=== PATIENT | female | born 1960 | race Caucasian/White ===

== ENCOUNTER → 2018-07-16 15:10 | Outpatient (POV) | payer OTHER, SELFPAY | PROVIDERS: PCP Nurse Practitioner Family | DX: Z00.00 Encounter for general adult medical examination without abnormal findings (principal) ==

== ENCOUNTER → 2019-07-22 14:43 | Outpatient (POV) | payer OTHER, SELFPAY | DX: Z00.00 Encounter for general adult medical examination without abnormal findings (principal) ==

== ENCOUNTER → 2021-04-27 09:55 | Outpatient (CLI) | payer MEDICAID, SELFPAY | PROVIDERS: Visit Provider Internal Medicine Gastroenterology | DX: Z20.822 Contact with and (suspected) exposure to COVID-19 (principal) | CPT/HCPCS: U0003 ==

== ENCOUNTER → 2021-06-29 12:39 | Outpatient (CLI) | payer MEDICAID, SELFPAY | PROVIDERS: Visit Provider Physician Assistant | DX: Z20.822 Contact with and (suspected) exposure to COVID-19 (principal) | CPT/HCPCS: U0003 ==

== ENCOUNTER 2022-11-13 19:39 | Emergency (ER) | payer MEDICAID, SELFPAY ==
[2022-11-13] VITALS (10 sets, daily range): BP systolic 119–147; BP diastolic 72–95; PULSE 90–116; RESP 14–22; TEMP 36.8; O2SAT 90–95; BMI 21.5
--- NOTE | 2022-11-13 19:45 | ECG_ITS ---
APPROVED REPORT Exam: Resting ECG HR:112 bpm ECG Measurements Heart Rate 112 AXES DE 164 P 84 QRSd 76 QRS 100 QT 304 T 83 QTc 370 Conclusion SINUS TACHYCARDIA WITH OCCASIONAL VENTRICULAR PREMATURE COMPLEXES RIGHT ATRIAL ENLARGEMENT [0.3mV P-WAVE] INDETERMINATE AXIS MODERATE ST DEPRESSION [0.05+ mV ST DEPRESSION] ABNORMAL ECG UNCONFIRMED REPORT Electronically signed by : Cornelius Hackett MD 11/13/2022 21:50:08
--- NOTE | 2022-11-13 19:58 | XR_ITS ---
PROCEDURE INFORMATION: Exam: XR Chest Exam date and time: 11/13/2022 8:10 PM Age: 62 years old Clinical indication: Shortness of breath; Additional info: SOA TECHNIQUE: Imaging protocol: Radiologic exam of the chest. Views: 2 views. COMPARISON: CR CXR CHEST(2 VIEWS-NOT PORTABLE) 03/07/2017 12:10 PM FINDINGS: Lungs: The lungs are hyperexpanded, compatible with emphysema. No active pulmonary infiltrate seen. Pleural spaces: Unremarkable. No pleural effusion. No pneumothorax. Heart/Mediastinum: Unremarkable. No cardiomegaly. Bones/joints: Mild degenerative changes are noted throughout the thoracic spine. IMPRESSION: No acute disease
[2022-11-13 20:05] LABS: Coronavirus 19, PCR Not Detected (NotDetected); Influenza A, PCR Not Detected (NotDetected); Influenza B, PCR Not Detected (NotDetected)
[2022-11-13 20:09] LABS: Chloride 101 mmol/L (98-107); Potassium 3.6 mmoL/L (3.5-5.1); Sodium 136 mmol/L (136-145)
--- NOTE | 2022-11-13 20:11 | HMH.EDSOB ---
Discharge Plan Disposition Patient Disposition: Home, Self-Care Prescriptions Prescriptions: New levofloxacin 500 mg tablet 500 mg PO DAILY Qty: 7 0RF No Action escitalopram oxalate 20 mg tablet PO 30 Days Qty: 30 Label Comments: estradiol 0.5 mg tablet 0.5 mg PO QDAY diazepam 10 mg tablet PO 30 Days Qty: 75 Label Comments: albuterol sulfate 90 mcg/actuation HFA aerosol inhaler INHALATION 25 Days Qty: 18 Label Comments: mirtazapine 15 mg tablet PO 30 Days Qty: 30 Label Comments: fluticasone propionate 110 mcg/actuation HFA aerosol inhaler INHALATION 30 Days Qty: 12 Label Comments: tiotropium bromide 2.5 mcg/actuation mist INHALATION 30 Days Qty: 4 Label Comments: amoxicillin-pot clavulanate [Augmentin] 875-125 mg tablet 1 tab PO BID Qty: 14 0RF guaifenesin [Mucinex] 600 mg tablet extended release 12hr 600 mg PO BID PRN (Reason: congestion) Qty: 20 0RF prednisone 10 mg tablets,dose pack See Rx Instructions PO PER PKG DIR Qty: 21 0RF Rx Instructions: PO PER PKG DIR prednisone 50 MG tablet 50 mg PO DAILY Qty: 5 0RF famotidine 20 MG tablet 20 mg PO BID Qty: 10 0RF diphenhydramine HCl 25 MG capsule 25 mg PO Q6H Qty: 20 0RF Rx Instructions: Take 1 capsule by mouth every 6 hours for 2 days, then continue if rash persists or recurs. Referrals Follow up/Referrals: Provider,Referral, MD [Primary Care Provider] - See instructions Clinical Impressions Clinical Impression: Acute exacerbation of chronic obstructive pulmonary disease (COPD), Leukocytosis (leucocytosis) Instructions Patient Instructions: DI for Chronic Obstructive Pulmonary Disease, DI for Leukocytosis Discharge ED Provider: Raleigh Basurto Resp/SOB HPI General Chief Complaint: Shortness of Breath/Dyspnea Stated Complaint: SOB Time Seen by Provider: 11/13/22 20:12 Mode of Arrival: Ambulatory Source of Information: Patient and Medical Record Limitations: No Limitations Description of Symptoms (Recalled from ER Triage Doc. by RN): Patient states that she has had shortness of air since 1400 today. States she has a hx of copd and believes that some recent stress has exacerbated it. Pt has treated her copd with her albuterol inhaler and a duoneb. Patient states that she has recently been diagnosed with a sinus infection and finished a round of steroids 5 days ago. States that she continues to have a productive cough. Denies any body aches or fever. History of Present Illness pt with hx of copd and has increased sob - recent steroids for sinus infection and has prod cough - pt with sob with walking and has had some loose stool at home and nonspecific adam MD Complaint: shortness of breath and cough Onset (ago): day(s) Context: recent illness Severity: moderate Known history of: COPD Associated symptoms: other (fatigue) Related Data Home oxygen amount: none Home Medications Medication Instructions Recorded Confirmed albuterol sulfate 90 mcg/actuation inhalation 25 days ##18 12/04/17 11/06/19 aerosol inhaler diazepam 10 mg tablet PO 30 days ##75 12/04/17 11/06/19 escitalopram oxalate 20 mg tablet PO 30 days ##30 12/04/17 11/06/19 estradiol 0.5 mg tablet 0.5 mg PO QDAY 12/04/17 11/06/19 fluticasone propionate 110 inhalation 30 days ##12 12/04/17 11/06/19 mcg/actuation HFA aerosol inhaler mirtazapine 15 mg tablet PO 30 days ##30 12/04/17 11/06/19 tiotropium bromide 2.5 inhalation 30 days ##4 12/04/17 11/06/19 mcg/actuation mist for inhalation Previous Rx's Medication Instructions Recorded amoxicillin 875 mg-potassium 1 tab PO BID #14 tabs 11/06/19 clavulanate 125 mg tablet (Augmentin) diphenhydramine HCl 25 mg capsule 25 mg PO Q6H #20 caps 11/06/19 famotidine 20 mg tablet 20 mg PO BID #10 tabs 11/06/19 guaifenesin 600 mg tablet, 600 mg PO BID PRN congestion #20 11/06/19 extende
[2022-11-13 20:12] LABS: Alanine Aminotransferase 36 U/L (12-78); Albumin Level 4.6 g/dl (3.5-5.0); Albumin/Globulin Ratio 1.3 (1.1-1.8); Alkaline Phosphatase 166 U/L (38-126); Anion Gap 13.6 mEq/L (5-15); Aspartate Amino Transferase 42 U/L (14-36); Bilirubin,Total 0.6 mg/dl (0.2-1.3); Blood Urea Nitrogen 8 mg/dl (7-17); Carbon Dioxide 25 mmol/L (22.0-30.0); Creatinine Clearance Estimated 48 mL/min (50-200); Estimated Glomerular Filt Rate 56 ml/min (>60); GFR (African American) 68 ML/MIN (>60); Globulin 3.5 g/dL (1.3-3.2); Total Protein,Serum 8.1 g/dl (6.3-8.2)
[2022-11-13 20:13] LABS: Calcium 9.5 mg/dl (8.4-10.2); Glucose 141 mg/dl (74-100)
--- NOTE | 2022-11-13 20:18 | PC.NURSE ---
Pt out of room for Chest X-Ray @ this time.
[2022-11-13 20:19] LABS: Basophils # 0.2 K/mm3 (0-0.2); Basophils % 0.8 % (0.1-2.0); Eosinophils # 0.2 K/mm3 (0.0-0.4); Eosinophils % 0.7 % (0.1-12.0); Hematocrit 48.2 % (37.0-47.0); Hemoglobin 16.2 g/dL (12.2-16.2); Lymphocytes # 1.2 K/mm3 (0.7-4.5); Lymphocytes % 5.1 % (10-50); Mean Corpuscular HGB Conc 33.6 g/dL (31.8-35.4); Mean Corpuscular Hemoglobin 33.3 pg (27.0-31.2); Mean Corpuscular Volume 98.9 fl (81-99); Mean Platelet Volume 7.8 fl (7.4-10.4); Monocytes # 0.8 K/mm3 (0.1-1.0); Monocytes % 3.3 % (1.7-9.3); Neutrophils # 21.5 K/mm3 (1.8-7.8); Platelet Count 477 K/mm3 (142-424); Red Blood Count 4.88 M/mm3 (4.20-5.40); Red Cell Distribution Width 13.1 % (11.5-17.5); White Blood Count 23.8 K/mm3 (4.8-10.8)
--- NOTE | 2022-11-13 20:21 | PC.NURSE ---
pt back to room from XR
[2022-11-13 20:23] LABS: MANUAL DIFFERENTIAL MANUAL DIFFERENTIAL (MANUAL DIFF)
--- NOTE | 2022-11-13 20:24 | PC.NURSE ---
pt back to room @ this time.
[2022-11-13 20:33] LABS: Troponin I < 0.01 ng/ml (0.00-0.034)
--- NOTE | 2022-11-13 20:38 | PC.NURSE ---
Dr. Basurto at
[2022-11-13 20:50] LABS: Lymphocytes % 5 % (10-50); Monocytes % 5 % (2-9); Neutrophils % 90 % (42-76); Total Cells Counted 100
[2022-11-13 20:51] LABS: Platelet Estimate Normal; RBC Morphology Normal
--- NOTE | 2022-11-13 21:09 | PC.NURSE ---
Rechecked pt condition. Pt provided with pillow. No other needs voiced at this time.
[2022-11-13 21:11] LABS: Microscopic, Urine URINE MICROSCOPIC (MICROSCOPIC)
[2022-11-13 21:17] LABS: Appearance,Urine CLEAR (Clear); Bilirubin,Urine Negative (Negative); Blood, Urine Negative (Negative); Color,Urine YELLOW (Yellow); Glucose,Urine (UA) Negative (Negative); Ketones,Urine 1+ (Negative); Leukocyte Esterase,Urine Negative (Negative); Nitrate,Urine Negative (Negative); Protein,Urine Negative (Negative); Urobilinogen,Urine 0.2 EU/dl (0.2)
[2022-11-13 21:32] LABS: Bacteria,Urine Trace /lpf; WBC,Urine Occasional #/hpf (0-3)
--- NOTE | 2022-11-13 21:54 | PC.NURSE ---
Rechecked pt condition, pt advised My teeth are chattering and that light is killing my head. Pt provided with warm blanket and light turned off.
--- NOTE | 2022-11-13 21:59 | CT_ITS ---
PROCEDURE INFORMATION: Exam: CTA Chest With Contrast Exam date and time: 11/13/2022 10:11 PM Age: 62 years old Clinical indication: Shortness of breath; Additional info: SOA TECHNIQUE: Imaging protocol: Computed tomographic angiography of the chest with contrast. 3D rendering (Not supervised by radiologist): MIP and/or 3D reconstructed images were created by the technologist. Radiation optimization: All CT scans at this facility use at least one of these dose optimization techniques: automated exposure control; mA and/or kV adjustment per patient size (includes targeted exams where dose is matched to clinical indication); or iterative reconstruction. Contrast material: ISOVUE 370; Contrast volume: 70 ml; Contrast route: INTRAVENOUS (IV); COMPARISON: CR XR CHEST 2V 11/13/2022 8:10 PM FINDINGS: Pulmonary arteries: Normal. No pulmonary emboli. Aorta: Mild atherosclerotic calcification noted in the aortic arch. There is slight fusiform dilation of the ascending aorta measuring maximum diameter of 3.2 cm. Lungs: There are mild changes of emphysema in the upper lungs. A few scattered small calcified granulomas are noted in both lungs. No active pulmonary infiltrate seen. Pleural spaces: Unremarkable. No pneumothorax. No pleural effusion. Heart: Unremarkable. No cardiomegaly. No pericardial effusion. Lymph nodes: Unremarkable. No enlarged lymph nodes. Liver: The liver appears mildly enlarged and diffusely fatty. Kidneys and ureters: There is partially visualized mild left hydronephrosis. Bones/joints: There is mild thoracic scoliosis. Bones are otherwise unremarkable. Soft tissues: Unremarkable. IMPRESSION: 1. No evidence of pulmonary embolus or other acute abnormality in the chest. 2. Chronic osseous, atherosclerotic and granulomatous changes. 3. Fatty liver and mild left hydronephrosis noted in the upper abdomen. COMMENTS: In the absence of a history or active diagnosis of lung cancer, it is recommended that this patient with emphysema be evaluated for enrollment in a low dose CT lung cancer screening program.
--- NOTE | 2022-11-13 21:59 | PC.NURSE ---
Dr. Basurto at BS updating pt on POC.
--- NOTE | 2022-11-13 22:05 | PC.NURSE ---
Pt gone to RAD via wheelchair
--- NOTE | 2022-11-13 22:18 | PC.NURSE ---
Pt back from RAD
[2022-11-13 22:20] LABS: C-Reactive Protein 18.2 mg/L (0-4)
[2022-11-13 22:29] LABS: Erythrocyte Sedimentation Rate 53 mm/hr (0-30)
--- NOTE | 2022-11-13 22:41 | PC.NURSE ---
Pt ambulatory to bathroom.
[2022-11-13 23:49] LABS: Troponin I < 0.01 ng/ml (0.00-0.034)
[2022-11-14 00:04] VITALS: BP 130/72; PULSE 75; RESP 17; TEMP 36.6; O2SAT 94
--- NOTE | 2022-11-14 00:05 | PC.NURSE ---
Dr. Basurto at BS to update on POC
[2022-11-15 23:34] LABS: Peripheral Smear Review Scanned Result
== END 2022-11-14 00:24 | disposition home or self-care (01) ==
PROVIDERS: Emergency Provider Emergency Medicine
DX: J44.1 Chronic obstructive pulmonary disease with (acute) exacerbation (principal); D72.829 Elevated white blood cell count, unspecified; Z87.891 Personal history of nicotine dependence; Z20.822 Contact with and (suspected) exposure to COVID-19
CPT/HCPCS: 71046; 71275; 80053; 81001; 83605; 84484; 85007; 85025; 85651; 86140; 87040; 93005; 96361; 96374; 99285; C9803; Q9967; U0003; U0005

== ENCOUNTER 2023-11-12 11:48 | Outpatient (CLI) | payer OTHER, SELFPAY ==
[2023-11-12 13:28] LABS: Amphetamine/Metha Screen,Urine Negative ng/ml (<1000); Barbiturates Screen,Urine Negative ng/ml (<200); Benzodiazepines Screen,Urine Negative ng/ml (<200); Cannabinoid Screen,Urine Positive ng/ml (<50); Cocaine Screen,Urine Negative ng/ml (<300); Methadone Screen,Urine Negative ng/ml (<300); Opiate Screen,Urine Negative ng/ml (<300); Phencyclidine Screen,Urine Negative ng/ml (<25)
[2023-11-12 18:56] LABS: Alanine Aminotransferase 34 U/L (12-78); Albumin Level 4.7 g/dl (3.5-5.0); Albumin/Globulin Ratio 1.7 (1.1-1.8); Alkaline Phosphatase 142 U/L (38-126); Anion Gap 12.1 mEq/L (5-15); Aspartate Amino Transferase 51 U/L (14-36); Bilirubin,Total 0.4 mg/dl (0.2-1.3); Blood Urea Nitrogen 7 mg/dl (7-17); Calcium 9.6 mg/dl (8.4-10.2); Carbon Dioxide 23 mmol/L (22.0-30.0); Chloride 107 mmol/L (98-107); Chol/HDL Ratio 2.2 (1-3.5); Cholesterol 190 mg/dl (140-200); Estimated Glomerular Filt Rate 85 ml/min (>60); GFR (African American) 102 ML/MIN (>60); Globulin 2.8 g/dL (1.3-3.2); Glucose 112 mg/dl (74-100); HDL Cholesterol 85 mg/dl (40-60); Potassium 4.1 mmoL/L (3.5-5.1); Sodium 138 mmol/L (136-145); Total Protein,Serum 7.5 g/dl (6.3-8.2); Triglycerides 90 mg/dl (30-150); VLDL Cholesterol 18 mg/dL (0-40)
[2023-11-12 19:07] LABS: Direct LDL Cholesterol 80.78 mg/dL (100-129)
[2023-11-12 19:20] LABS: Basophils # 0.1 K/mm3 (0-0.2); Basophils % 0.8 % (0.1-2.0); Eosinophils % 0.5 % (0.1-12.0); Hematocrit 51.2 % (37.0-47.0); Hemoglobin 16.8 g/dL (12.2-16.2); Lymphocytes # 1.8 K/mm3 (0.7-4.5); Lymphocytes % 25.6 % (10-50); Mean Corpuscular HGB Conc 32.8 g/dL (31.8-35.4); Mean Corpuscular Hemoglobin 32.5 pg (27.0-31.2); Mean Corpuscular Volume 99.2 fl (81-99); Mean Platelet Volume 9.1 fl (7.4-10.4); Monocytes # 0.4 K/mm3 (0.1-1.0); Monocytes % 6.1 % (1.7-9.3); Neutrophils # 4.8 K/mm3 (1.8-7.8); Neutrophils % 67.1 % (37.0-80.0); Platelet Count 356 K/mm3 (142-424); Red Blood Count 5.16 M/mm3 (4.20-5.40); Red Cell Distribution Width 12.9 % (11.5-17.5); White Blood Count 7.1 K/mm3 (4.8-10.8)
[2023-11-12 19:27] LABS: Thyroid Stimulating Hormone 0.88 uIU/mL (0.465-4.68)
[2023-11-12 19:39] LABS: 25-OH Vitamin D, Total 73.9 ng/mL (30-100)
[2023-11-14 07:59] LABS: HBsAg Screen Negative (Negative); HCV Ab Non Reactive (Non Reactive); Hep A Ab, IGM Negative (Negative); Hep B Core Ab, IgM Negative (Negative)
== END 2023-11-12 23:59 ==
LOC: LAB.DROPOF 11:49
PROVIDERS: PCP Physician Assistant; Visit Provider Physician Assistant
DX: Z79.899 Other long term (current) drug therapy (principal); J44.9 Chronic obstructive pulmonary disease, unspecified; K76.0 Fatty (change of) liver, not elsewhere classified; M81.0 Age-related osteoporosis without current pathological fracture; R74.8 Abnormal levels of other serum enzymes
CPT/HCPCS: 80053; 80061; 80074; 80307; 82306; 84443; 85025

== ENCOUNTER 2023-11-12 17:42 | Outpatient (CLI) | payer OTHER, SELFPAY | END 2023-11-12 23:59 | LOC: LAB.DROPOF 17:43 | PROVIDERS: PCP Physician Assistant; Visit Provider Physician Assistant | DX: Z79.899 Other long term (current) drug therapy (principal) ==

== ENCOUNTER 2023-11-22 08:27 | Outpatient (CLI) | payer OTHER, SELFPAY ==
--- NOTE | 2023-11-22 08:29 | US_ITS ---
FINAL REPORT CLINICAL HISTORY: Elevated liver enzymes COMPARISON: None FINDINGS: Sonographic images of the right upper quadrant were obtained. The pancreas is partially obscured. The liver is fatty infiltrated. The gallbladder appears normal without evidence of gallstones.There is no evidence of biliary ductal dilatation.The common duct measures 3 mm. Limited images of the right kidney are unremarkable. IMPRESSION: Fatty liver. Reviewed, Interpreted and Dictated by Marvel Otero III, MD Transcribed by Rosy Abad Authenticated and [facility]
== END 2023-11-22 23:59 ==
LOC: RAD 08:29
PROVIDERS: PCP Physician Assistant; Visit Provider Physician Assistant
DX: R74.8 Abnormal levels of other serum enzymes (principal)
CPT/HCPCS: 76705

== ENCOUNTER 2023-12-19 14:55 | Outpatient (CLI) | payer OTHER, SELFPAY ==
--- NOTE | 2023-12-19 15:01 | CT_ITS ---
FINAL REPORT TECHNIQUE: Thin section axial images were obtained from the lung apices to the upper abdomen by computed tomography. Reformatted images were obtained and reviewed. This study was performed with techniques to keep radiation doses al low as reasonably achievable (ALARA). Individualized dose reduction techniques using automated exposure control or adjustment of mA and/or kV according to the patient's size were employed. CLINICAL HISTORY: lung cancer screening former smoker, quit 2 years ago. smoked 1.5 ppd x 40 years COMPARISON: CTA of the chest dated 11/13/2022 FINDINGS: CHEST CT LOW DOSE 63-year-old female, former smoker who quit 2 years ago, [id number] history of smoking. CTDI vol (mGy): 2.90 DLP (mGy-cm): 101.86 There is no axillary adenopathy. There is no mediastinal or hilar mass or adenopathy. The heart is normal in size. There is no pericardial or pleural effusion. There is mild emphysema and mild pulmonary scarring. Multiple calcified granulomas are identified. There has been interval improvement in the small nodules into the left upper lobe and right upper lobe when compared to the prior exam. Lung window images demonstrate a 4 mm right upper lobe nodule best seen on image #149, stable. There is a 5 mm nodule adjacent to the left major fissure, also stable, best seen on image #108. There is a 4 mm nodule in the right lower lobe not definitely seen on the prior exam, present on image #270. There are several other smaller less than 5 mm nodules present, including a cluster of small nodules in the inferior right middle lobe. Limited images of the upper abdomen are unremarkable. IMPRESSION: Lung-RADS category 2. Recommend 12 month follow up low dose chest CT. Reviewed, Interpreted and Dictated by Marvel Otero III, MD Transcribed by Radha Noriega Authenticated and [facility]
== END 2023-12-19 23:59 ==
LOC: RAD 14:56
PROVIDERS: PCP Physician Assistant; Visit Provider Physician Assistant
DX: Z87.891 Personal history of nicotine dependence (principal)
CPT/HCPCS: 71271

== ENCOUNTER 2024-06-03 12:37 | Outpatient (CLI) | payer OTHER, SELFPAY ==
--- NOTE | 2024-06-03 12:38 | MM_ITS ---
PROCEDURE INFORMATION: Exam: MG Bilateral Screening 3D Mammography Exam date and time: 06/03/2024 12:40 PM Age: 63 years old Clinical indication: Screening examination TECHNIQUE: Imaging protocol: Bilateral Screening tomosynthesis and 2D mammography including computer-aided detection (CAD) when performed. COMPARISON: No relevant prior studies available. FINDINGS: MAMMOGRAPHY: Breast composition: The breasts are heterogeneously dense, which may obscure small masses. Mass: None. Architectural distortion: None. Calcifications: No suspicious calcifications. Asymmetric density: None. Skin thickening: None. Axillary adenopathy: None. IMPRESSION: No mammographic evidence of malignancy. Annual screening is recommended unless otherwise clinically indicated. ASSESSMENT: BI-RADS Category 1: Negative
== END 2024-06-03 23:59 | disposition home or self-care (01) ==
LOC: RAD 12:38
PROVIDERS: PCP Physician Assistant; Visit Provider Nurse Practitioner Obstetrics & Gynecology
DX: Z12.31 Encounter for screening mammogram for malignant neoplasm of breast (principal)
CPT/HCPCS: 77063; 77067

== ENCOUNTER 2024-06-19 11:10 | Outpatient (CLI) | payer OTHER, SELFPAY ==
[2024-06-19 17:17] LABS: Basophils # 0.1 K/mm3 (0-0.2); Basophils % 0.6 % (0.1-2.0); Eosinophils # 0.1 K/mm3 (0.0-0.4); Eosinophils % 1.1 % (0.1-12.0); Hematocrit 41.5 % (37.0-47.0); Hemoglobin 15.9 g/dL (12.2-16.2); Lymphocytes # 2.5 K/mm3 (0.7-4.5); Lymphocytes % 26.8 % (10-50); Mean Corpuscular HGB Conc 38.4 g/dL (31.8-35.4); Mean Corpuscular Hemoglobin 38.9 pg (27.0-31.2); Mean Corpuscular Volume 101.3 fl (81-99); Mean Platelet Volume 7.9 fl (7.4-10.4); Monocytes # 0.5 K/mm3 (0.1-1.0); Monocytes % 5.8 % (1.7-9.3); Neutrophils % 65.7 % (37.0-80.0); Platelet Count 321 K/mm3 (142-424); Red Blood Count 4.09 M/mm3 (4.20-5.40); Red Cell Distribution Width 13.7 % (11.5-17.5); White Blood Count 9.2 K/mm3 (4.8-10.8)
[2024-06-19 18:29] LABS: Alanine Aminotransferase 36 U/L (12-78); Albumin Level 4.6 g/dl (3.5-5.0); Albumin/Globulin Ratio 1.6 (1.1-1.8); Alkaline Phosphatase 108 U/L (38-126); Anion Gap 11.4 mEq/L (5-15); Aspartate Amino Transferase 55 U/L (14-36); Bilirubin,Total 0.7 mg/dl (0.2-1.3); Blood Urea Nitrogen 13 mg/dl (7-17); Calcium 9.8 mg/dl (8.4-10.2); Carbon Dioxide 25 mmol/L (22.0-30.0); Chloride 105 mmol/L (98-107); Cholesterol 239 mg/dl (140-200); Estimated Glomerular Filt Rate 56 ml/min (>60); GFR (African American) 68 ML/MIN (>60); Globulin 2.8 g/dL (1.3-3.2); Glucose 78 mg/dl (74-100); Potassium 4.4 mmoL/L (3.5-5.1); Sodium 137 mmol/L (136-145); Total Protein,Serum 7.4 g/dl (6.3-8.2); Triglycerides 96 mg/dl (30-150); VLDL Cholesterol 19 mg/dL (0-40)
[2024-06-19 18:40] LABS: Direct LDL Cholesterol 85.38 mg/dL (100-129)
[2024-06-19 18:41] LABS: Chol/HDL Ratio 2.3 (1-3.5); HDL Cholesterol 104 mg/dl (40-60)
[2024-06-19 18:49] LABS: 25-OH Vitamin D, Total 85.7 ng/mL (30-100)
[2024-06-19 19:03] LABS: Thyroid Stimulating Hormone 1.48 uIU/mL (0.465-4.68)
[2024-06-22 10:10] LABS: Vitamin B12 942 pg/mL (239-931)
== END 2024-06-19 23:59 | disposition home or self-care (01) ==
LOC: LAB.DROPOF 06-22 11:10
PROVIDERS: PCP Physician Assistant; Visit Provider Physician Assistant
DX: M81.0 Age-related osteoporosis without current pathological fracture (principal); R53.83 Other fatigue; Z68.21 Body mass index [BMI] 21.0-21.9, adult; J43.9 Emphysema, unspecified; F41.9 Anxiety disorder, unspecified; J30.9 Allergic rhinitis, unspecified; K76.0 Fatty (change of) liver, not elsewhere classified
CPT/HCPCS: 80050; 80053; 80061; 82306; 82607; 84443; 85025

== ENCOUNTER 2024-07-02 07:46 | Outpatient (CLI) | payer OTHER, SELFPAY ==
[2024-07-02 09:02] LABS: Chloride 108 mmol/L (98-107); Potassium 4.2 mmoL/L (3.5-5.1); Sodium 137 mmol/L (136-145)
[2024-07-02 09:05] LABS: Anion Gap 7.2 mEq/L (5-15); Blood Urea Nitrogen 13 mg/dl (7-17); Calcium 9.4 mg/dl (8.4-10.2); Carbon Dioxide 26 mmol/L (22.0-30.0); Estimated Glomerular Filt Rate 63 ml/min (>60); GFR (African American) 77 ML/MIN (>60); Glucose 97 mg/dl (74-100)
== END 2024-07-02 23:59 | disposition home or self-care (01) ==
LOC: LAB 07:47
PROVIDERS: PCP Physician Assistant; Visit Provider Physician Assistant
DX: R94.4 Abnormal results of kidney function studies (principal)
CPT/HCPCS: 36415; 80048

== ENCOUNTER 2024-12-21 15:11 | Outpatient (CLI) | payer OTHER, SELFPAY ==
--- NOTE | 2024-12-21 15:11 | CT_ITS ---
FINAL REPORT TECHNIQUE: Thin section axial images were obtained through the lungs using a low-dose technique per lung cancer screening protocol. Reconstruction images were obtained using the axial data. This study was performed with techniques to keep radiation doses as low as reasonably achievable, (ALARA). Individualized dose reduction techniques using automated exposure control or adjustment of mA and/or kV according to the patient's size were employed. CLINICAL HISTORY: lung cancer screening former smoker, quit 4 yrs ago / ppd x 50 yrs COMPARISON: 12/19/2023 FINDINGS: CHEST CT LOW DOSE CTDLvol: 2.9 DLP: 104.99 Lungs: There is emphysema and evidence of prior granulomatous disease. The previously seen 4 mm anterior right upper lobe nodule has resolved. There is a new right lower lobe nodule measuring 5 mm seen on image 220 of series 2. The lungs are otherwise clear. There is no consolidation. Lymph nodes: No thoracic lymphadenopathy. Mediastinum: Heart size is normal. Pleura/pericardium: No pleural or pericardial effusion. Other: No acute abnormality in the upper abdomen. IMPRESSION: New 5 mm right lower lobe pulmonary nodule. A previously seen right upper lobe nodule has resolved. Lung RADS: 3 Recommendation: 6-month follow-up low-dose chest CT. Reviewed, Interpreted and Dictated by Aishwarya Eid MD Transcribed by Myla Preston Authenticated and . [facility]
== END 2024-12-21 23:59 | disposition home or self-care (01) ==
LOC: RAD 15:11
PROVIDERS: PCP Internal Medicine; Visit Provider Internal Medicine Pulmonary Disease
DX: F17.210 Nicotine dependence, cigarettes, uncomplicated (principal)
CPT/HCPCS: 71271

== ENCOUNTER 2024-12-29 08:07 | Outpatient (CLI) | payer OTHER, SELFPAY ==
[2024-12-29 08:30] LABS: Basophils # 0.1 K/mm3 (0-0.2); Basophils % 0.9 % (0.1-2.0); Eosinophils # 0.2 K/mm3 (0.0-0.4); Eosinophils % 2.4 % (0.1-12.0); Hematocrit 47.8 % (37.0-47.0); Hemoglobin 16.9 g/dL (12.2-16.2); Lymphocytes # 3.7 K/mm3 (0.7-4.5); Lymphocytes % 49.9 % (10-50); Mean Corpuscular HGB Conc 35.4 g/dL (31.8-35.4); Mean Corpuscular Hemoglobin 32.4 pg (27.0-31.2); Mean Corpuscular Volume 91.6 fl (81-99); Mean Platelet Volume 8.9 fl (7.4-10.4); Monocytes # 0.6 K/mm3 (0.1-1.0); Monocytes % 8.3 % (1.7-9.3); Neutrophils # 2.8 K/mm3 (1.8-7.8); Neutrophils % 38.5 % (37.0-80.0); Platelet Count 288 K/mm3 (142-424); Red Blood Count 5.22 M/mm3 (4.20-5.40); Red Cell Distribution Width 11.9 % (11.5-17.5); White Blood Count 7.4 K/mm3 (4.8-10.8)
[2024-12-29 08:40] LABS: Creatinine,Urine Random 117 mg/dL (Not Estab.)
[2024-12-29 08:41] LABS: Microalbumin/Creatinine Ratio 54.1
[2024-12-29 08:57] LABS: Chloride 102 mmol/L (98-107)
[2024-12-29 08:58] LABS: Potassium 4.2 mmoL/L (3.5-5.1); Sodium 137 mmol/L (136-145)
[2024-12-29 09:00] LABS: Alanine Aminotransferase 38 U/L (12-78); Alkaline Phosphatase 111 U/L (38-126); Anion Gap 11.2 mEq/L (5-15); Aspartate Amino Transferase 47 U/L (14-36); Bilirubin,Total 0.7 mg/dl (0.2-1.3); Blood Urea Nitrogen 17 mg/dl (7-17); Carbon Dioxide 28 mmol/L (22.0-30.0); Estimated Glomerular Filt Rate 56 ml/min (>60); GFR (African American) 68 ML/MIN (>60)
[2024-12-29 09:01] LABS: Albumin/Globulin Ratio 2.1 (1.1-1.8); Calcium 9.7 mg/dl (8.4-10.2); Chol/HDL Ratio 2.1 (1-3.5); Cholesterol 201 mg/dl (140-200); Globulin 2.4 g/dL (1.3-3.2); Glucose 92 mg/dl (74-100); HDL Cholesterol 97 mg/dl (40-60); Total Protein,Serum 7.4 g/dl (6.3-8.2); Triglycerides 95 mg/dl (30-150); VLDL Cholesterol 19 mg/dL (0-40)
[2024-12-29 09:13] LABS: Direct LDL Cholesterol 86.61 mg/dL (100-129)
[2024-12-29 09:31] LABS: Thyroid Stimulating Hormone 2.01 uIU/mL (0.465-4.68)
[2024-12-30 10:24] LABS: HBsAg Screen Negative (Negative); HCV Ab Non Reactive (Non Reactive); Hep A Ab, IGM Negative (Negative); Hep B Core Ab, IgM Negative (Negative)
== END 2024-12-29 23:59 | disposition home or self-care (01) ==
LOC: LAB 08:08
PROVIDERS: PCP Internal Medicine; Visit Provider Internal Medicine
DX: M81.0 Age-related osteoporosis without current pathological fracture (principal); K76.0 Fatty (change of) liver, not elsewhere classified; J44.89 Other specified chronic obstructive pulmonary disease; F41.9 Anxiety disorder, unspecified; J43.9 Emphysema, unspecified; R06.09 Other forms of dyspnea; R73.03 Prediabetes
CPT/HCPCS: 36415; 80053; 80061; 80074; 82043; 82306; 82570; 84443; 85025; 86803

== ENCOUNTER 2025-01-01 09:00 | Outpatient (CLI) | payer OTHER, SELFPAY ==
--- NOTE | 2025-01-01 09:01 | XR_ITS ---
FINAL REPORT TECHNIQUE: Bone densitometry calculations of the lumbar spine and left hip were obtained. CLINICAL HISTORY: Osteoporosis COMPARISON: None FINDINGS: Using L1-4, the bone mineral density of the spine is 0.782 g/cm2, corresponding to T-score of -2.4. Using the left hip, the bone mineral density of the femoral neck is 0.541 g/cm2, corresponding to a T-score of -2.8. Using the right hip, the bone mineral density of the femoral neck is 0.551 g/cm?, which corresponds to a T-score of -2.7. NOTE: T-score: Standard deviation compared with peak bone mass of young adult mean. *Following the recommendations of the International Society of Bone Densitometry, classification of hip BMD is based on the lower of two T-scores; total hip or femoral neck. IMPRESSION: Osteoporosis: Lowest T-score is at or below -2.5. This patient's T-score meets the World Health Organization criteria for osteoporosis. Reviewed, Interpreted and Dictated by Kaykay Márquez MD Transcribed by Radha Noriega Authenticated and [facility]
== END 2025-01-01 23:59 | disposition home or self-care (01) ==
LOC: RAD 09:01
PROVIDERS: PCP Internal Medicine; Visit Provider Nurse Practitioner Obstetrics & Gynecology
DX: M81.0 Age-related osteoporosis without current pathological fracture (principal)
CPT/HCPCS: 77080

== ENCOUNTER 2025-01-11 10:57 | Outpatient (CLI) | payer OTHER, SELFPAY ==
[2025-01-11 18:22] LABS: Coronavirus 19, PCR Not Detected (NotDetected); Influenza A, PCR Not Detected (NotDetected); Influenza B, PCR Not Detected (NotDetected)
== END 2025-01-11 23:59 | disposition home or self-care (01) ==
LOC: LAB.DROPOF 01-12 10:03
PROVIDERS: PCP Family Medicine; Visit Provider Family Medicine
DX: R05.9 Cough, unspecified (principal); R09.81 Nasal congestion; R68.89 Other general symptoms and signs
CPT/HCPCS: 87636

== ENCOUNTER 2025-06-04 08:17 | Outpatient (CLI) | payer OTHER, SELFPAY ==
--- NOTE | 2025-06-04 08:30 | MM_ITS ---
PROCEDURE INFORMATION: Exam: MG Bilateral Screening 3D Mammography Exam date and time: 06/04/2025 8:27 AM Age: 64 years old Clinical indication: Screening examination. TECHNIQUE: Imaging protocol: Bilateral Screening tomosynthesis and 2D mammography including computer-aided detection (CAD) when performed. COMPARISON: MG MM DIG SCREENING MAMM BI W/CAD 06/03/2024 12:40 PM FINDINGS: MAMMOGRAPHY: Breast composition: There are scattered areas of fibroglandular density. Mass: None. Architectural distortion: None. Calcifications: No suspicious calcifications. Asymmetric density: None. Skin thickening: None. Axillary adenopathy: None. IMPRESSION: No mammographic evidence of malignancy. Annual screening is recommended unless otherwise clinically indicated. ASSESSMENT: BI-RADS Category 1: Negative.
[2025-06-04 09:10] VITALS: PULSE 56; PULSE 58
[2025-06-04] MEDS: ALBUTEROL 0.083% 2.5 MG/3 ML NEB IH (09:10)
== END 2025-06-04 23:59 | disposition home or self-care (01) ==
LOC: RAD 08:18
PROVIDERS: PCP Nurse Practitioner Obstetrics & Gynecology; Visit Provider Nurse Practitioner Obstetrics & Gynecology
DX: Z12.31 Encounter for screening mammogram for malignant neoplasm of breast (principal); J44.9 Chronic obstructive pulmonary disease, unspecified; R92.323 Mammographic fibroglandular density, bilateral breasts
CPT/HCPCS: 77063; 77067; 94010; 94618; 94640

== ENCOUNTER 2025-07-22 09:42 | Outpatient (CLI) | payer OTHER, SELFPAY ==
[2025-07-22 15:19] LABS: Hematocrit 46.5 % (37.0-47.0); Hemoglobin 15.9 g/dL (12.2-16.2); Immature Granulocytes % 0.2 %; Mean Corpuscular HGB Conc 34.2 g/dL (31.8-35.4); Mean Corpuscular Hemoglobin 32.4 pg (27.0-31.2); Mean Corpuscular Volume 94.7 fl (81-99); Nucleated Red Blood Cells % 0 %; Platelet Count 370 K/mm3 (142-424); Red Blood Count 4.91 M/mm3 (4.20-5.40); Red Cell Distribution Width-SD 44.2 fL; White Blood Count 9.3 K/mm3 (4.8-10.8)
[2025-07-22 16:02] LABS: Albumin Level 4.9 g/dl (3.5-5.0); Chloride 100 mmol/L (98-107); Potassium 4.3 mmoL/L (3.5-5.1); Sodium 138 mmol/L (136-145)
[2025-07-22 16:05] LABS: Alanine Aminotransferase 34 U/L (12-78); Albumin/Globulin Ratio 1.9 (1.1-1.8); Alkaline Phosphatase 128 U/L (38-126); Anion Gap 15.3 mEq/L (5-15); Aspartate Amino Transferase 51 U/L (14-36); Bilirubin,Total 0.9 mg/dl (0.2-1.3); Blood Urea Nitrogen 15 mg/dl (7-17); Carbon Dioxide 27 mmol/L (22.0-30.0); Creatinine,Serum 1.10 mg/dl (0.52-1.04); Estimated Glomerular Filt Rate 50 ml/min (>60); GFR (African American) 61 ML/MIN (>60); Globulin 2.6 g/dL (1.3-3.2); Total Protein,Serum 7.5 g/dl (6.3-8.2)
[2025-07-22 16:06] LABS: Calcium 9.9 mg/dl (8.4-10.2); Glucose 97 mg/dl (74-100)
== END 2025-07-22 23:59 ==
LOC: LAB.DROPOF 07-23 12:19
PROVIDERS: PCP Family Medicine; Visit Provider Family Medicine
DX: I10 Essential (primary) hypertension (principal)
CPT/HCPCS: 80053; 85025

== ENCOUNTER 2025-09-07 10:39 | Outpatient (CLI) | payer MEDICARE, SELFPAY ==
[2025-09-07 15:41] LABS: Alanine Aminotransferase 31 U/L (12-78); Albumin Level 4.9 g/dl (3.5-5.0); Albumin/Globulin Ratio 1.5 (1.1-1.8); Alkaline Phosphatase 114 U/L (38-126); Anion Gap 12.3 mEq/L (5-15); Aspartate Amino Transferase 48 U/L (14-36); Bilirubin,Total 0.7 mg/dl (0.2-1.3); Blood Urea Nitrogen 12 mg/dl (7-17); Calcium 9.9 mg/dl (8.4-10.2); Carbon Dioxide 25 mmol/L (22.0-30.0); Chloride 104 mmol/L (98-107); Creatinine,Serum 1.00 mg/dl (0.52-1.04); Estimated Glomerular Filt Rate 56 ml/min (>60); GFR (African American) 68 ML/MIN (>60); Globulin 3.2 g/dL (1.3-3.2); Glucose 100 mg/dl (74-100); Potassium 4.3 mmoL/L (3.5-5.1); Sodium 137 mmol/L (136-145); Total Protein,Serum 8.1 g/dl (6.3-8.2)
== END 2025-09-07 23:59 | disposition home or self-care (01) ==
LOC: LAB.DROPOF 09-08 21:02
PROVIDERS: PCP Student in an Organized Health Care Education/Training Program; Visit Provider Family Medicine
DX: M19.90 Unspecified osteoarthritis, unspecified site (principal)
CPT/HCPCS: 80053